=== PATIENT | female | born 1990 | race Two or more races ===

== ENCOUNTER 2017-01-22 03:35 | Emergency (ER) | payer BC ==
--- NOTE | 2017-01-22 03:56 | ER Document Report ---
ED General - General Chief Complaint: Arm Pain Stated Complaint: MUSCULAR PAIN LEFT SIDE Time Seen by Provider: 01/22/17 03:46 Notes: Patient is a 26-year-old female presents with complaint of pain to her left shoulder. She says that she does a lot heavy lifting has been having some soreness and pain in her shoulder but also worse when she lifts or moves it. No redness or swelling to the shoulder. No recent fevers. No infections. No other complaints at this time. No direct trauma to the shoulder. TRAVEL OUTSIDE OF THE [place] IN LAST 30 DAYS: No - Related Data Allergies/Adverse Reactions: No Known Allergies Allergy (Unverified 08/16/11 19:43) Past Medical History - Social History Smoking Status: Never Smoker Frequency of alcohol use: None Drug Abuse: None Family History: Reviewed & Not Pertinent Patient has suicidal ideation: No Patient has homicidal ideation: No Renal/ Medical History: Denies: Hx Peritoneal Dialysis - Immunizations Hx Diphtheria, Pertussis, Tetanus Vaccination: - unknown Review of Systems - Review of Systems Notes: My Normal Review Basic REVIEW OF SYSTEMS: CONSTITUTIONAL : Denies fever, chills, or sweats. Denies recent illness. MUSCULOSKELETAL: Left shoulder pain. SKIN: Denies rash or skin lesions. NEUROLOGICAL: Denies sensory or motor loss. ALL OTHER SYSTEMS REVIEWED AND NEGATIVE. Physical Exam - Notes Notes: General Appearance: Well nourished, alert, cooperative, no acute distress, no obvious discomfort. Vitals: reviewed, See vital signs table. Extremities: strength 5/5 in all extremities, good pulses in all extremities, mild pain to palpation left shoulder. She does have good range of motion of the shoulder but does have pain with movement of it. She has no redness or swelling. No signs of infection on examination of the shoulder. Skin: warm, dry, appropriate color, no rash Neuro: speech clear, oriented x 3, normal affect, responds appropriately to questions. Course - Transfer of Care Notes: 01/23/17 06:27 Patient has what appears to be a strain of the shoulder. There is no evidence of infection or redness or swelling. Patient will be given a sling encouraged follow-up with her doctor or orthopedics. She is encouraged to return to ER if she has worsening pain fevers, redness or swelling to the shoulder, or feels unwell. Patient agrees with plan will be discharged home. Dictation of this chart was performed using voice recognition software; therefore, there may be some unintended grammatical errors. Discharge - Discharge Clinical Impression: Pectoralis muscle strain Qualifiers: Encounter type: initial encounter Qualified Code(s): S29.011A - Strain of muscle and tendon of front wall of thorax, initial encounter Condition: Good Disposition: HOME, SELF-CARE Additional Instructions: Please avoid heavy lifting for the next 3-4 days. Please return to the ER immediately if you have worsening pain, fevers, redness or swelling to your shoulder or chest. Please follow up with your doctor in 2-3 days for reevaluation. Take Ibuprofen 600mg every 6 hours for pain. Take the Ibuprofen with food. Forms: Return to Work
[2017-01-22] MEDS ORDERED: IBUPROFEN 600 MG TABLET PO ONE (04:12)
== END 2017-01-22 04:06 | disposition home or self-care (01) ==
LOC: ER 03:35
DX: S29.011A Strain of muscle and tendon of front wall of thorax, initial encounter (principal); X58.XXXA Exposure to other specified factors, initial encounter
CPT/HCPCS: 99283

== ENCOUNTER 2017-05-22 20:10 | Emergency (ER) | payer SELFPAY ==
--- NOTE | 2017-05-22 20:40 | ER Document Report ---
ED Medical Screen (RME) - General Chief Complaint: Shortness Of Breath Stated Complaint: DIFFICULTY BREATHING Mode of Arrival: Ambulatory Information source: Patient Notes: 26-year-old female presents with complaints of chest palpitations shortness of breath. Patient notes she has a history of anxiety, last night she is cocaine today she smoked weed she drank coffee she drank energy drinks and now feels like her heart racing Patient denies any actual chest pain I have greeted and performed a rapid initial assessment of this patient. A comprehensive ED assessment and evaluation of the patient, analysis of test results and completion of the medical decision making process will be conducted by additional ED providers. PHYSICAL EXAMINATION: GENERAL: Well-appearing, well-nourished and in no acute distress. HEAD: Atraumatic, normocephalic. EYES: Pupils equal round extraocular movements intact, conjunctiva are normal. ENT: Nares patent NECK: Normal range of motion LUNGS: No respiratory distress Heart: Tachycardic Musculoskeletal: Normal range of motion NEUROLOGICAL: Normal speech, normal gait. PSYCH: Normal mood, normal affect. SKIN: Warm, Dry, normal turgor, no rashes or lesions noted. TRAVEL OUTSIDE OF THE [place] IN LAST 30 DAYS: No - Related Data Allergies/Adverse Reactions: No Known Allergies Allergy (Verified 05/22/17 20:22) Past Medical History Renal/ Medical History: Denies: Hx Peritoneal Dialysis - Immunizations Hx Diphtheria, Pertussis, Tetanus Vaccination: - unknown Physical Exam - Vital signs Vitals: Temp Pulse Resp BP Pulse Ox 97.7 F 137 H 20 147/91 H 100 05/22/17 20:21 05/22/17 20:21 05/22/17 20:21 05/22/17 20:21 05/22/17 20:21 Course - Vital Signs Vital signs: Temp Pulse Resp BP Pulse Ox 97.7 F 137 H 20 147/91 H 100 05/22/17 20:21 05/22/17 20:21 05/22/17 20:21 05/22/17 20:21 05/22/17 20:21
[2017-05-22] MEDS ORDERED: NORMAL SALINE 1000 ML 1,000 ML IV ONE (20:53)
[2017-05-22] MEDS ORDERED: LORAZEPAM INJ 2 MG/1 ML VIAL IV ONE (20:53)
--- NOTE | 2017-05-22 20:59 | ER Document Report ---
ED General - General Chief Complaint: Shortness Of Breath Stated Complaint: DIFFICULTY BREATHING Time Seen by Provider: 05/22/17 20:40 Mode of Arrival: Ambulatory Notes: Patient is a 26-year-old female that comes emergency department for chief complaint of shortness of breath and palpitations, she states last night she used cocaine, today she smoked a lot of pot, she also has been drinking a lot of coffee. She states that she has been feeling depressed and she was just looking for something to pick her up. She denies suicidal ideations, she denies significant history of depression, she denies suicidal attempts in the past, she denies requiring treatment or hospitalization in the past. She states that she does not regularly use recreational drugs. She denies any daily medications, LMP within the past month, only past medical history reported is breast reduction. TRAVEL OUTSIDE OF THE [place] IN LAST 30 DAYS: No - Related Data Allergies/Adverse Reactions: No Known Allergies Allergy (Verified 05/22/17 20:22) Past Medical History - General Information source: Patient - Social History Smoking Status: Current Every Day Smoker Chew tobacco use (# tins/day): No Frequency of alcohol use: None Drug Abuse: Cocaine, Marijuana Family History: Reviewed & Not Pertinent Patient has suicidal ideation: No Patient has homicidal ideation: No Renal/ Medical History: Denies: Hx Peritoneal Dialysis - Immunizations Hx Diphtheria, Pertussis, Tetanus Vaccination: - unknown Review of Systems - Review of Systems Constitutional: No symptoms reported EENT: No symptoms reported Cardiovascular: See HPI Respiratory: No symptoms reported Gastrointestinal: No symptoms reported Genitourinary: No symptoms reported Female Genitourinary: No symptoms reported Musculoskeletal: No symptoms reported Skin: No symptoms reported Hematologic/Lymphatic: No symptoms reported Neurological/Psychological: See HPI Physical Exam - Vital signs Vitals: Temp Pulse Resp BP Pulse Ox 97.7 F 137 H 20 147/91 H 100 05/22/17 20:21 05/22/17 20:21 05/22/17 20:21 05/22/17 20:21 05/22/17 20:21 Interpretation: Normal - General General appearance: Appears well, Alert In distress: None - HEENT Head: Normocephalic, Atraumatic Eyes: Normal Pupils: PERRL - Respiratory Respiratory status: No respiratory distress Chest status: Nontender Breath sounds: Normal Chest palpation: Normal - Cardiovascular Rhythm: Regular, Tachycardia Heart sounds: Normal auscultation, S1 appreciated, S2 appreciated Murmur: No - Abdominal Inspection: Normal Distension: No distension Bowel sounds: Normal Tenderness: Nontender Organomegaly: No organomegaly - Back Back: Normal, Nontender - Extremities General upper extremity: Normal inspection, Nontender, Normal color, Normal ROM , Normal temperature General lower extremity: Normal inspection, Nontender, Normal color, Normal ROM , Normal temperature, Normal weight bearing. No: Sharon's sign - Neurological Neuro grossly intact: Yes Cognition: Normal Orientation: AAOx4 Enrrique Coma Scale Eye Opening: Spontaneous Braithwaite Coma Scale Verbal: Oriented Braithwaite Coma Scale Motor: Obeys Commands Enrrique Coma Scale Total: 15 Speech: Normal Motor strength normal: LUE, RUE, LLE, RLE Sensory: Normal - Psychological Associated symptoms: Anxious - anxious but cooperative and responsive - Skin Skin Temperature: Warm Skin Moisture: Dry Skin Color: Normal Course - Re-evaluation Re-evalutation: Patient initially anxious in appearance and tachycardic. She reports a sensation of palpitations but she denies any chest pain or shortness of breath. Patient given Ativan and IV fluids. Afterwards symptoms resolved. On reevaluation she is calm, no tachycardia, denies any symptoms. CBC, chemistry, generally unremarkable. Potassium slightly low, TSH is elevated but patient does not have suggestion of hyperthyroidism. Discussed results with patient. Discussed substance abuse, discussed her current situation. She states that she is getting , she is depressed about it but she has very good family Support, she states that she had a bad weekend but she never plans to use recreational drugs again, she states she understands the risk of possible and long-term problems because of them, she states that she was prescribed Xanax by her provider and she will fill and take it, she states she also wants something to help her sleep at night. She will be given Vistaril. She denies SI or HI. She is going home with a family member. Discussed return precautions , patient states understanding and agreement. - Vital Signs Vital signs: Temp Pulse Resp BP Pulse Ox 97.7 F 137 H 19 127/83 H 97 05/22/17 20:21 05/22/17 20:21 05/23/17 00:15 05/23/17 00:05 05/23/17 00:15 - Laboratory Result Diagrams: 05/22/17 20:16 05/22/17 20:16 Laboratory results interpreted by me: 05/22/17 05/22/17 05/22/17 20:16 20:16 20:16 WBC 12.3 H RDW 14.5 H Absolute Neutrophils 8.9 H Potassium 3.5 L Carbon Dioxide 21 L Glucose 166 H Calcium 10.7 H Total Protein 9.0 H Albumin 5.1 H TSH 8.32 H Discharge - Discharge Clinical Impression: Anxiety, Substance abuse, Tachycardia Condition: Stable Disposition: HOME, SELF-CARE Additional Instructions: Your potassium was slightly low, increase in your diet. Your thyroid screening test is abnormal today, I recommend a thyroid panel with your primary care with routine follow-up. Take your Xanax if needed for panic attack, try the Vistaril prescribed today to help you with sleeping at night. Follow-up closely with your provider for additional management. Return to the emergency department for any concerning symptoms or if something is not right. Prescriptions: Hydroxyzine Pamoate [Vistaril 50 mg Capsule] 50 mg PO QHS #30 capsule
--- NOTE | 2017-05-22 21:18 | RADIOLOGY REPORT (SQ) ---
EXAM DESCRIPTION: CHEST SINGLE VIEW COMPLETED DATE/TIME: 05/22/2017 9:01 pm REASON FOR STUDY: sob cocaine use COMPARISON: None. EXAM PARAMETERS: NUMBER OF VIEWS: One view. TECHNIQUE: Single frontal radiographic view of the chest acquired. RADIATION DOSE: NA LIMITATIONS: None. FINDINGS: LUNGS AND PLEURA: No opacities, masses or pneumothorax. No pleural effusion. MEDIASTINUM AND HILAR STRUCTURES: No masses. Contour normal. HEART AND VASCULAR STRUCTURES: Heart normal in size. Normal vasculature. BONES: No acute findings. HARDWARE: None in the chest. OTHER: No other significant finding. IMPRESSION: NO ACUTE RADIOGRAPHIC FINDING IN THE CHEST. TECHNICAL DOCUMENTATION: JOB ID: [id number]
[2017-05-22 21:23] LABS: ABSOLUTE LYMPHOCYTES (AUTO) 2.5 10^3/uL (0.5-4.7); ABSOLUTE MONOCYTES (AUTO) 0.9 10^3/uL (0.1-1.4); ABSOLUTE NEUT (AUTO) 8.9 10^3/uL (1.7-8.2); BASOPHILS % (AUTO) 0.2 % (0-2); EOSINOPHILS % (AUTO) 0.2 % (0-6); HEMATOCRIT 38.7 % (36.0-47.0); HEMOGLOBIN 13.1 g/dL (12.0-15.5); HGB HCT DIFFERENCE 0.6; LYMPHOCYTES % (AUTO) 20.3 % (13-45); MEAN CORPUSCULAR HEMOGLOBIN 30.1 pg (27.0-33.4); MEAN CORPUSCULAR HGB CONC 33.7 g/dL (32.0-36.0); MEAN CORPUSCULAR VOLUME 89 fl (80-97); MONOCYTES % (AUTO) 7.1 % (3-13); RED BLOOD COUNT 4.35 10^6/uL (3.72-5.28); RED CELL DISTRIBUTION WIDTH 14.5 % (11.5-14.0); SEGMENTED NEUTROPHILS % (AUTO) 72.2 % (42-78); WHITE BLOOD COUNT 12.3 10^3/uL (4.0-10.5)
[2017-05-22 21:33] LABS: ALANINE AMINOTRANSFERASE 41 U/L (9-52); ALBUMIN 5.1 g/dL (3.5-5.0); ALKALINE PHOSPHATASE 106 U/L (38-126); ANION GAP 19 (5-19); ASPARTATE AMINO TRANSFERASE 32 U/L (14-36); BILIRUBIN,DIRECT 0.4 mg/dL (0.0-0.4); BILIRUBIN,TOTAL 0.4 mg/dL (0.2-1.3); BLOOD UREA NITROGEN 10 mg/dL (7-20); CALCIUM 10.7 mg/dL (8.4-10.2); CARBON DIOXIDE 21 mmol/L (22-30); CHLORIDE 103 mmol/L (98-107); CREATINE KINASE 79 U/L (30-135); CREATININE RESULT 0.83 mg/dL (0.52-1.25); GLUCOSE 166 mg/dL (75-110); POTASSIUM 3.5 mmol/L (3.6-5.0); SODIUM 142.6 mmol/L (137-145)
[2017-05-22 21:46] LABS: CREATINE KINASE MB 0.45 ng/mL (<4.55)
[2017-05-22 21:48] LABS: TROPONIN I < 0.012 ng/mL
[2017-05-22] MEDS ORDERED: POTASSIUM CHLORIDE 10 MEQ TABLET.SA PO ONE (23:27)
[2017-05-22] MEDS ORDERED: HYDROXYZINE PAMOATE 50 MG CAPSULE PO ONE (23:27)
[2017-05-23 00:16] VITALS: BP 127/83
--- NOTE | 2017-05-23 08:06 | EKG REPORT ---
SEVERITY:- BORDERLINE ECG - SINUS TACHYCARDIA PROBABLE LEFT ATRIAL ABNORMALITY BORDERLINE T ABNORMALITIES, DIFFUSE LEADS : Confirmed by: Latasha Kaufman MD 23-May-2017 08:05:41
== END 2017-05-23 00:51 | disposition home or self-care (01) ==
LOC: ER 20:10
DX: F41.9 Anxiety disorder, unspecified (principal); F19.10 Other psychoactive substance abuse, uncomplicated; R00.0 Tachycardia, unspecified; R06.02 Shortness of breath; R00.2 Palpitations; F17.200 Nicotine dependence, unspecified, uncomplicated
CPT/HCPCS: 93005; 99285; 36415; 82553; 82550; 84443; 84703; 85025; 80053; 84484; 71010; 93010; J2060; J7030

== ENCOUNTER 2017-06-09 18:40 | Emergency (ER) | payer SELFPAY ==
--- NOTE | 2017-06-09 20:51 | ER Document Report ---
ED Medical Screen (RME) - General TRAVEL OUTSIDE OF THE [place] IN LAST 30 DAYS: No - HPI Patient complains to provider of: Dizziness Onset: This evening Associated Symptoms: Other - see notes above - Related Data Smoking: Cigarettes Frequency of alcohol use: Heavy Drug Abuse: Cocaine <MARGARETH COOPER - Last Filed: 06/09/17 21:18> <MARTINRANJANNITINCIRO - Last Filed: 06/09/17 21:40> - General Chief Complaint: Anxiety Stated Complaint: DIZZY,NAUSEA Time Seen by Provider: 06/09/17 20:34 Notes: 26-year-old female with history of depression presents to the ED complaining of dizziness and left-sided chest pain that started earlier today. Patient reports that she was drinking and using cocaine last night. She woke up this morning feeling anxious and took a Xanax at 1800 and is now complaining of dizziness. Patient denies any vision changes. Patient states that she is prescribed medication for depression, but does not take it. Patient does not have a counselor, but states that she would see one if provided the opportunity. (MARGARETH COOPER) - Related Data Allergies/Adverse Reactions: No Known Allergies Allergy (Verified 05/22/17 20:22) Past Medical History - General Information source: Patient - Social History Chew tobacco use (# tins/day): No Frequency of alcohol use: Heavy Drug Abuse: Cocaine Renal/ Medical History: Denies: Hx Peritoneal Dialysis Psychiatric Medical History: Reports: Hx Depression Past Surgical History: Reports: Hx Breast Surgery - reduction, Hx Orthopedic Surgery - knee - Immunizations Hx Diphtheria, Pertussis, Tetanus Vaccination: Yes - 2013 History of Influenza Vaccine for 05/2017 - 10/2017 Season: Yes Influenza Administration Date for 05/2017 - 10/2017 Season: 05/29/17 <MARGARETH COOPER - Last Filed: 06/09/17 21:18> Review of Systems - Review of Systems Constitutional: No symptoms reported EENT: No symptoms reported Cardiovascular: See HPI, Chest pain - left, Dizziness Respiratory: No symptoms reported Gastrointestinal: No symptoms reported Genitourinary: No symptoms reported Female Genitourinary: No symptoms reported Musculoskeletal: No symptoms reported Skin: No symptoms reported Hematologic/Lymphatic: No symptoms reported Neurological/Psychological: No symptoms reported -: Yes All other systems reviewed and negative <MARGARETH COOPER - Last Filed: 06/09/17 21:18> Physical Exam - General General appearance: Alert In distress: None <MARGARETH COOPER - Last Filed: 06/09/17 21:18> - Vital signs Vitals: Temp Pulse Resp BP Pulse Ox 97.2 F 102 H 18 136/73 H 100 06/09/17 20:08 06/09/17 20:08 06/09/17 20:08 06/09/17 20:08 06/09/17 20:08 Course <MARGARETH COOPER - Last Filed: 06/09/17 21:18> - Laboratory Result Diagrams: 06/09/17 21:10 06/09/17 21:10 <CIRO VALDIVIA - Last Filed: 06/09/17 21:40> - Re-evaluation Re-evalutation: 06/09/17 21:39 States she drinks and uses recreational drugs because she is depressed, denies suicidal ideation, states she feels overwhelmed. States she would like to see a counselor. (CIRO VALDIVIA) - Vital Signs Vital signs: Temp Pulse Resp BP Pulse Ox 97.2 F 102 H 18 136/73 H 100 06/09/17 20:08 06/09/17 20:08 06/09/17 20:08 06/09/17 20:08 06/09/17 20:08 Doctor's Discharge <MARGARETH COOPER - Last Filed: 06/09/17 21:18> <CIRO VALDIVIA - Last Filed: 06/09/17 21:40> - Discharge Instructions: Anxiety ([facility]) Scribe Documentation - Scribe Written by Scribe:: Jess Rosales, [id number] acting as scribe for :: Kandace <MARGARETH COOPER - Last Filed: 06/09/17 21:18>
[2017-06-09 21:44] LABS: APPEARANCE,URINE SLIGHTLY-CLOUDY; BILIRUBIN,URINE NEGATIVE (NEGATIVE); GLUCOSE, URINE NEGATIVE (NEGATIVE); KETONES,URINE NEGATIVE (NEGATIVE); LEUKOCYTE ESTERASE,URINE NEGATIVE (NEGATIVE); NITRITE,URINE NEGATIVE (NEGATIVE); PROTEIN,URINE NEGATIVE (NEGATIVE); URINE SPECIFIC GRAVITY 1.009; UROBILINOGEN,URINE NEGATIVE mg/dL (<2.0)
[2017-06-09 21:47] LABS: ABSOLUTE LYMPHOCYTES (AUTO) 2.9 10^3/uL (0.5-4.7); ABSOLUTE MONOCYTES (AUTO) 0.8 10^3/uL (0.1-1.4); ABSOLUTE NEUT (AUTO) 9.3 10^3/uL (1.7-8.2); BASOPHILS % (AUTO) 0.2 % (0-2); EOSINOPHILS % (AUTO) 0.3 % (0-6); HEMATOCRIT 40.9 % (36.0-47.0); HEMOGLOBIN 13.9 g/dL (12.0-15.5); HGB HCT DIFFERENCE 0.8; LYMPHOCYTES % (AUTO) 22.2 % (13-45); MEAN CORPUSCULAR HEMOGLOBIN 30.5 pg (27.0-33.4); MEAN CORPUSCULAR VOLUME 90 fl (80-97); MONOCYTES % (AUTO) 5.9 % (3-13); RED BLOOD COUNT 4.57 10^6/uL (3.72-5.28); RED CELL DISTRIBUTION WIDTH 14.3 % (11.5-14.0); SEGMENTED NEUTROPHILS % (AUTO) 71.4 % (42-78)
--- NOTE | 2017-06-09 21:47 | RADIOLOGY REPORT (SQ) ---
EXAM DESCRIPTION: CHEST PA/LAT COMPLETED DATE/TIME: 06/09/2017 9:18 pm REASON FOR STUDY: CP COMPARISON: None. EXAM PARAMETERS: NUMBER OF VIEWS: two views TECHNIQUE: Digital Frontal and Lateral radiographic views of the chest acquired. RADIATION DOSE: NA LIMITATIONS: none FINDINGS: LUNGS AND PLEURA: No opacities, masses or pneumothorax. No pleural effusion. MEDIASTINUM AND HILAR STRUCTURES: No masses or contour abnormalities. HEART AND VASCULAR STRUCTURES: Heart normal size. No evidence for failure. BONES: No acute findings. HARDWARE: None in the chest. OTHER: No other significant finding. IMPRESSION: NO SIGNIFICANT RADIOGRAPHIC FINDING IN THE CHEST. TECHNICAL DOCUMENTATION: JOB ID: [id number] All Rights Reserved
[2017-06-09 21:57] LABS: ALANINE AMINOTRANSFERASE 45 U/L (9-52); ALBUMIN 5.3 g/dL (3.5-5.0); ALKALINE PHOSPHATASE 109 U/L (38-126); ANION GAP 18 (5-19); ASPARTATE AMINO TRANSFERASE 32 U/L (14-36); BILIRUBIN,DIRECT 0.4 mg/dL (0.0-0.4); BILIRUBIN,TOTAL 0.5 mg/dL (0.2-1.3); BLOOD UREA NITROGEN 10 mg/dL (7-20); CALCIUM 10.6 mg/dL (8.4-10.2); CARBON DIOXIDE 25 mmol/L (22-30); CHLORIDE 103 mmol/L (98-107); CREATINE KINASE 310 U/L (30-135); GLUCOSE 79 mg/dL (75-110); POTASSIUM 3.9 mmol/L (3.6-5.0); SODIUM 145.5 mmol/L (137-145); TOTAL PROTEIN 9.4 g/dL (6.3-8.2); URINE BARBITURATES SCREEN NEGATIVE; URINE METHADONE SCREEN NEGATIVE; URINE OPIATES LOW NEGATIVE; URINE PHENCYCLIDINE SCREEN NEGATIVE
[2017-06-09 21:58] LABS: ALCOHOL < 10 mg/dL (NONE DETECTED)
[2017-06-09 22:12] LABS: TROPONIN I < 0.012 ng/mL
--- NOTE | 2017-06-09 22:26 | ER Document Report ---
ED General - General Chief Complaint: Anxiety Stated Complaint: DIZZY,NAUSEA Time Seen by Provider: 06/09/17 20:34 Notes: 26 yo female past medical history depression, presents with feelings of lightheadedness and anxiety. She smoked cocaine last night and then took a Xanax at 1800 today before the symptoms started. She is a heavy drinker. She is prescribed medications for depression but does not take it. She works at [employer] in [place] [place] and says that she can function at work, but does not want any of her coworkers to know about her substance abuse. She is requesting confidential help. She denies syncope, cough, fevers, leg swelling, hemoptysis, nausea, vomiting, abdominal pain, urinary symptoms or back pain. TRAVEL OUTSIDE OF THE [place] IN LAST 30 DAYS: No - Related Data Allergies/Adverse Reactions: No Known Allergies Allergy (Verified 05/22/17 20:22) Past Medical History - General Information source: Patient - Social History Smoking Status: Current Every Day Smoker Chew tobacco use (# tins/day): No Frequency of alcohol use: Heavy Drug Abuse: Cocaine Family History: Reviewed & Not Pertinent Patient has suicidal ideation: No Patient has homicidal ideation: No Renal/ Medical History: Denies: Hx Peritoneal Dialysis Psychiatric Medical History: Reports: Hx Depression Past Surgical History: Reports: Hx Breast Surgery - reduction, Hx Orthopedic Surgery - knee - Immunizations Hx Diphtheria, Pertussis, Tetanus Vaccination: Yes - 2013 Review of Systems - Review of Systems Notes: REVIEW OF SYSTEMS: CONSTITUTIONAL: -fevers, -chills EENT: -eye pain, -difficulty swallowing, -nasal congestion CARDIOVASCULAR:-chest pain, -syncope. RESPIRATORY: -cough, -SOB GASTROINTESTINAL: -abdominal pain, -nausea, -vomiting, -diarrhea GENITOURINARY: -dysuria, -hematuria MUSCULOSKELETAL: -back pain, -neck pain SKIN: -rash or skin lesions. HEMATOLOGIC: -easy bruising or bleeding. LYMPHATIC: -swollen, enlarged glands. NEUROLOGICAL: -altered mental status or loss of consciousness, -headache, - neurologic symptoms PSYCHIATRIC: +anxiety, -depression, +drug abuse ALL OTHER SYSTEMS REVIEWED AND NEGATIVE. Physical Exam - Vital signs Vitals: Temp Pulse Resp BP Pulse Ox 97.2 F 102 H 18 136/73 H 100 06/09/17 20:08 06/09/17 20:08 06/09/17 20:08 06/09/17 20:08 06/09/17 20:08 - Notes Notes: PHYSICAL EXAMINATION: GENERAL: Well-appearing, well-nourished and in no acute distress. HEAD: Atraumatic, normocephalic. EYES: Pupils equal round and reactive to light, extraocular movements intact, sclera anicteric, conjunctiva are normal. ENT: nares patent, oropharynx clear without exudates. Moist mucous membranes. NECK: Normal range of motion, supple without lymphadenopathy LUNGS: Breath sounds clear to auscultation bilaterally and equal. No wheezes rales or rhonchi. HEART: Regular rate and rhythm without murmurs ABDOMEN: Soft, nontender, normoactive bowel sounds. No guarding, no rebound. No masses appreciated. EXTREMITIES: Normal range of motion, no pitting or edema. No cyanosis. NEUROLOGICAL: Cranial nerves grossly intact. Normal speech, normal gait. Normal sensory and motor exams. PSYCH: Normal mood, normal affect. SKIN: Warm, Dry, normal turgor, no rashes or lesions noted. Course - Re-evaluation Re-evalutation: Patient appears well and is in no acute distress. Her labs, EKG and urine are remarkable for a slight leukocytosis and UDS positive for cocaine. No signs of infection at this time and the slight leukocytosis is most likely from her cocaine abuse. She is requesting help with her alcohol and substance abuse. Provided her with follow-up at [facility] and [facility]. - Vital Signs Vital signs: Temp Pulse Resp BP Pulse Ox 97.2 F 102 H 18 136/73 H 100 06/09/17 20:08 06/09/17 20:08 06/09/17 20:08 06/09/17 20:08 06/09/17 20:08 - Laboratory Result Diagrams: 06/09/17 21:10 06/09/17 21:10 Laboratory results interpreted by me: 06/09/17 06/09/17 06/09/17 21:10 21:10 21:10 WBC 13.0 H RDW 14.3 H Absolute Neutrophils 9.3 H Sodium 145.5 H Calcium 10.6 H Creatine Kinase 310 H Total Protein 9.4 H Albumin 5.3 H Urine Blood MODERATE H Discharge - Discharge Clinical Impression: Anxiety, Substance abuse Condition: Stable Disposition: HOME, SELF-CARE Instructions: Anxiety ([facility]) Additional Instructions: CHRONIC ALCOHOLISM and ALCOHOL ABUSE: Your evaluation reveals evidence of chronic alcoholism, an addiction to alcohol. The tendency to alcoholism may be inherited. Chronic use of alcohol weakens muscles, causes fatty deposits in the liver , damages the stomach, makes you more prone to infections, and can cause defects in unborn children. In the long run, brain atrophy and cirrhosis of the liver result. You are also at greater risk for certain types of cancer, such as cancer of the mouth, throat, stomach, and liver. Counselling services are available to help you. In-hospital treatment programs often help. Support groups such as Alcoholics Anonymous can be very useful in beating this addiction. Your physician can make a referral for you. As alcoholics often are prone to other addictions, you should discuss your use of any other medications with the doctor. COCAINE ABUSE: Cocaine causes many dangerous medical problems. Problems can occur even with "usual" amounts. Cocaine affects judgement, creating a sense of invulnerability. Cocaine users often make bad decisions that seem "great" at the time. Most cocaine users eventually will be hurt by bad job performance, damaged personal relations, crime, and unsafe sexual practices. Toxic effects of cocaine can include seizures, hallucinations, delusions, high blood pressure, heart damage, or sudden . There's always the risk of a "bad batch." But heart attacks, brain hemorrhages, or cardiac arrest can occur unpredictably even with "normal" use. Injection of cocaine is risky for abscesses, endocarditis (heart infection) , pneumonia, and AIDS. Withdrawal from cocaine often causes anxiety and drug cravings. Some users become paranoid and psychotic. Many treatment programs are available, but you must make the decision to quit. Medication can be prescribed to control the symptoms of cocaine toxicity (beta blockers or benzodiazepines). Withdrawal symptoms may require tranquilizers. OVERDOSE / INGESTION: You have taken more medication than you should have. After your evaluation and care, it is felt that your overdose is not likely to be harmful or of any significant consequences to you and you are being discharged. In the future, you should be careful not to take more medications than what is prescribed for you. Although your overdose does not seem to be of any danger to you at this time, if you develop any unusual or unexpected symptoms after your discharge, you should return to the Emergency Department immediately for re-evaluation. INSTRUCTIONS FOR HOME CARE FOLLOWING DRUG OVERDOSAGE: The doctor feels it's safe for you to go home. You will need to be observed. If charcoal and a laxative was given to you, expect some loose black stools soon. Take no medications unless approved by a physician, including alcohol. If drowsy, lie on your stomach or side for sleeping to avoid aspiration if vomiting occurs. Take only liquids by mouth until there is no more nausea. FOR THE OBSERVER: Observe the patient for the next 24 hours and call or go to the hospital if any of the following are noted: prolonged or repeated vomiting, difficulty in arousing, convulsions (seizures or fits), fever, persistent cough, breathing that is too slow or too rapid, or confused or bizarre behavior. If a counselling visit has been arranged, make sure the patient attends. Call the physician or poison control if you have questions. FOLLOW-UP CARE: If you have been referred to a physician for follow-up care, call the physician s office for an appointment as you were instructed or within the next two days. If you experience worsening or a significant change in your symptoms, notify the physician immediately or return to the Emergency Department at any time for re-evaluation. Referrals: [facility] [Outside] - Follow up as needed [facility] [Outside] - Follow up as needed
[2017-06-09 23:21] VITALS: BP 133/83
--- NOTE | 2017-06-10 08:10 | EKG REPORT ---
SEVERITY:- NORMAL ECG - SINUS RHYTHM : Confirmed by: Austin Stewart MD 10-Jun-2017 08:09:50
== END 2017-06-09 23:19 | disposition home or self-care (01) ==
LOC: ER 18:40
DX: F14.10 Cocaine abuse, uncomplicated (principal); F10.10 Alcohol abuse, uncomplicated; F41.9 Anxiety disorder, unspecified; R42 Dizziness and giddiness; F32.9 Major depressive disorder, single episode, unspecified; T50.906A Underdosing of unspecified drugs, medicaments and biological substances, initial encounter; Z91.14 Patient's other noncompliance with medication regimen; F17.200 Nicotine dependence, unspecified, uncomplicated; D72.829 Elevated white blood cell count, unspecified
CPT/HCPCS: 36415; 71020; 80053; 80307; 81001; 81025; 82550; 82553; 84484; 85025; 93005; 93010; 99284